=== PATIENT | female | born 1960 | race Caucasian/White ===

== ENCOUNTER 2020-09-19 03:00 | Observation (INO) ==
[2020-09-19 04:00] LABS: Basophils % 0.5 %; Eosinophils # 0.4 K/mcL (0.0-0.6); Eosinophils % 4.7 %; Hematocrit 40.6 % (35.3-44.9); Immature Granulocytes % 0.2 % (0-4); Lymphocytes # 2.1 K/mcL (0.6-4.6); Lymphocytes % 25.3 %; Mean Corpuscular Hemoglobin 27.1 pg (28.0-33.3); Mean Corpuscular Volume 84.8 fL (83.0-100.0); Mean Platelet Volume 10.8 fL (9.4-12.4); Monocytes # 0.7 K/mcL (0.0-1.3); Monocytes % 8.7 %; Neutrophils # 4.9 K/mcL (1.6-8.9); Platelet Count 282 K/mcL (140-400); Red Blood Count 4.79 M/mcL (3.82-4.97); Red Cell Distribution Width 14.1 % (11.5-14.5); Segmented Neutrophils % 60.6 %; White Blood Count 8.1 K/mcL (4.3-11.1)
[2020-09-19 04:21] LABS: BUN/Creatinine Ratio 19 (6-26); Blood Urea Nitrogen 22 mg/dL (8-23); Calcium 9.9 mg/dL (8.6-10.3); Carbon Dioxide 23 mEq/L (23-29); Chloride 99 mEq/L (98-107); Glucose 210 mg/dL (70-105); Osmolality,Calculated 302 (280-300); Potassium 4.3 mEq/L (3.5-5.1); Sodium 141 mEq/L (136-145); eGFR For African Americans 59 (> 60); eGFR For Non-African Americans 49 (> 60)
[2020-09-19 04:22] LABS: Troponin I < 0.03 ng/mL (< 0.04)
[2020-09-19] MEDS ORDERED: Isovue-370 500 ML BOTTLE IVP ONE (05:26)
[2020-09-19 06:26] LABS: Alanine Aminotransferase 34 Units/L (7-52); Albumin 4.2 g/dL (3.5-5.7); Albumin/Globulin Ratio 1.4 (1.1-2.2); Alkaline Phosphatase 61 Units/L (34-104); Aspartate Amino Transferase 27 Units/L (13-39); Bilirubin,Direct 0.1 mg/dL (0.0-0.2); Bilirubin,Indirect 0.3 mg/dL (0.0-1.0); Bilirubin,Total 0.4 mg/dL (0.3-1.0); Lipase 72 Units/L (11-82); Total Protein 7.2 g/dL (6.4-8.9)
[2020-09-19] MEDS ORDERED: Aspirin 325 MG TABLET PO ONE (07:21)
[2020-09-19] MEDS ORDERED: Ondansetron ODT 4 MG TAB.RAPDIS SL PRN (07:24)
[2020-09-19] MEDS ORDERED: D5% in Water 1,000 ML IVC PRN (08:14)
[2020-09-19] MEDS ORDERED: *HR* Dextrose 50 % in Water (Vial) 50 ML VIAL IVP PRN (08:14)
[2020-09-19] MEDS ORDERED: Dextrose Gel 15 GM/37.5 ML TUBE PO PRN ×2 (08:14)
[2020-09-19] MEDS ORDERED: Regadenoson 0.4 MG/5 ML SYRINGE IVP ONE (09:43)
[2020-09-19] MEDS ORDERED: Nitroglycerin 0.4 MG TAB.SUBL SL ONE (11:13)
[2020-09-19] MEDS: Insulin LISPRO 300 UNITS/3 ML VIAL SUBQ SCH ×3 (11:45→20:23)
[2020-09-19] MEDS: Insulin DETEMIR 100 UNIT/ML X5UNITS SUBQ SCH (11:45)
[2020-09-19] MEDS: lisinopriL 20 MG TABLET PO SCH (18:08)
[2020-09-19] MEDS: Gabapentin 300 MG CAPSULE PO SCH (20:23)
[2020-09-20] MEDS: Acetaminophen 325 MG TABLET PO PRN ×2 (01:02→08:11)
[2020-09-20 06:16] LABS: Hematocrit 42.1 % (35.3-44.9); Hemoglobin 13.5 g/dL (11.5-15.4); Mean Corpuscular HGB Conc 32.1 g/dL (31.6-35.5); Mean Corpuscular Volume 84.2 fL (83.0-100.0); Mean Platelet Volume 10.7 fL (9.4-12.4); Platelet Count 260 K/mcL (140-400); Red Cell Distribution Width 14.3 % (11.5-14.5); White Blood Count 6.9 K/mcL (4.3-11.1)
[2020-09-20 06:37] LABS: BUN/Creatinine Ratio 21 (6-26); Blood Urea Nitrogen 21 mg/dL (8-23); Calcium 9.6 mg/dL (8.6-10.3); Carbon Dioxide 23 mEq/L (23-29); Chloride 101 mEq/L (98-107); Glucose 217 mg/dL (70-105); Osmolality,Calculated 290 (280-300); Potassium 4.3 mEq/L (3.5-5.1); Sodium 135 mEq/L (136-145); eGFR For African Americans > 60 (> 60); eGFR For Non-African Americans 57 (> 60)
[2020-09-20] MEDS: Insulin DETEMIR 100 UNIT/ML X5UNITS SUBQ SCH (08:11)
[2020-09-20] MEDS: lisinopriL 20 MG TABLET PO SCH (08:11)
[2020-09-20] MEDS: Aspirin 81 MG TAB.CHEW PO SCH (08:11)
[2020-09-20] MEDS: Insulin LISPRO 300 UNITS/3 ML VIAL SUBQ SCH ×4 (08:12→19:58)
[2020-09-20] MEDS: Gabapentin 300 MG CAPSULE PO SCH (19:58)
[2020-09-20] MEDS: MetroNIDAZOLE 500 MG/100 ML 500 MG/100 ML BAG IVPB SCH (20:12)
[2020-09-21] MEDS: MetroNIDAZOLE 500 MG/100 ML 500 MG/100 ML BAG IVPB SCH ×2 (03:49→13:50)
[2020-09-21 06:29] LABS: Basophils % 0.5 %; Eosinophils # 0.3 K/mcL (0.0-0.6); Eosinophils % 3.8 %; Hematocrit 43.4 % (35.3-44.9); Hemoglobin 13.9 g/dL (11.5-15.4); Immature Granulocytes % 0.4 % (0-4); Lymphocytes # 1.6 K/mcL (0.6-4.6); Lymphocytes % 20.2 %; Mean Corpuscular Hemoglobin 27.3 pg (28.0-33.3); Mean Corpuscular Volume 85.3 fL (83.0-100.0); Mean Platelet Volume 11.1 fL (9.4-12.4); Monocytes # 0.8 K/mcL (0.0-1.3); Monocytes % 9.9 %; Neutrophils # 5.1 K/mcL (1.6-8.9); Platelet Count 237 K/mcL (140-400); Red Blood Count 5.09 M/mcL (3.82-4.97); Red Cell Distribution Width 14.1 % (11.5-14.5); Segmented Neutrophils % 65.2 %; White Blood Count 7.9 K/mcL (4.3-11.1)
[2020-09-21 06:41] LABS: INR 1.1; Prothrombin Time 12.3 Seconds (9.4-12.1)
[2020-09-21 06:48] LABS: BUN/Creatinine Ratio 21 (6-26); Blood Urea Nitrogen 22 mg/dL (8-23); Calcium 9.6 mg/dL (8.6-10.3); Carbon Dioxide 24 mEq/L (23-29); Chloride 101 mEq/L (98-107); Glucose 297 mg/dL (70-105); Osmolality,Calculated 294 (280-300); Potassium 4.2 mEq/L (3.5-5.1); Sodium 135 mEq/L (136-145); eGFR For African Americans > 60 (> 60); eGFR For Non-African Americans 52 (> 60)
[2020-09-21] MEDS ORDERED: Perflutren Lipid Microsphere 1.3 ML in 0.9 % Sodium Chloride 8.7 ML IVP PRN (08:59)
[2020-09-21] MEDS: Insulin LISPRO 300 UNITS/3 ML VIAL SUBQ SCH ×2 (09:05→12:48)
[2020-09-21] MEDS: Insulin DETEMIR 100 UNIT/ML X5UNITS SUBQ SCH (09:25)
[2020-09-21] MEDS: lisinopriL 20 MG TABLET PO SCH (09:25)
[2020-09-21] MEDS: Aspirin 81 MG TAB.CHEW PO SCH (09:25)
[2020-09-21 11:54] VITALS: BP 124/80
[2020-09-21 11:58] LABS: Chol/HDL Ratio 3.6 (0-4.9)
[2020-09-21] MEDS ORDERED: MetroNIDAZOLE 500 MG/100 ML 500 MG/100 ML BAG IVPB SCH (18:59)
== END 2020-09-21 18:33 | disposition home or self-care (01) ==
LOC: EMEROOARM 03:00 → CDU 03:00 → SUATTDRO 08:03 → CDU 08:53 → 3BNU 09-21 16:29
PROVIDERS: ADMIT Internal Medicine; ATTEND Student in an Organized Health Care Education/Training Program